=== PATIENT | female | born 1940 | race Caucasian/White ===

== ENCOUNTER 2019-05-07 16:13 | Inpatient (IN) | payer MEDICARE ==
[~2019-05-07] VITALS: Ht 167.6 cm; Wt 68.2 kg
--- NOTE | 2019-05-07 16:44 | NUR ---
BRAEDEN LADD AT APPROX 1600, PT STATES SHE GOT DIZZY AND FELL IN HER BATHROOM, PT HAS SWELLING TO R FOREHEAD AND LAC TO R ARM. PT PLACED ON MONITOR, STATES HE HAS A HX OF HTN, DEMENTIA AND HYPOTHYROID AFTER A THYROIDECTOMY. CALL LIGHT WITHIN REACH, PT STATES HER DAUGHTERS ARE AWARE AND COMING TO HOSPITAL.
[2019-05-07] MEDS ORDERED: LIDOCAINE-MPF 1%, 5ML ONE (17:06)
[2019-05-07] MEDS ORDERED: DIPH,PERTUSS(ACELL),TET VAC/PF 0.5 ML IM-VACC ONE ×2 (18:00→18:31)
--- NOTE | 2019-05-07 18:16 | NUR ---
AMBULATED TO RESTROOM WITH STEADY GAIT (NO DIZZINESS), NO INCREASE IN HR, DROP IN B/P
[2019-05-07] MEDS ORDERED: NEOSPORIN OINT. PKT 1 PACKET ONE (18:30)
[2019-05-07 18:56] LABS: MICROSCOPIC AUTO
[2019-05-07 18:57] LABS: CULTURE INDICATED? YES
--- NOTE | 2019-05-07 19:11 | NUR ---
Lab at Bedside at [address] scan at 1905 Reports to NATALIE Alonso
--- NOTE | 2019-05-07 19:16 | NUR ---
PT REPORT FROM NATALIE TRUONG. PT CARE TO BE ASSUMED.
[2019-05-07 19:20] LABS: BASOPHILS # (AUTO) 0.03 x10^3/uL (0-0.1); BASOPHILS % (AUTO) 0 % (0-1); EOSINOPHILS # (AUTO) 0.17 x10^3/uL (0-0.4); EOSINOPHILS % (AUTO) 2 % (1-7); LYMPHOCYTES # (AUTO) 1.34 x10^3/uL (1-3.4); LYMPHOCYTES % (AUTO) 16 % (22-44); MD NO; MEAN CORPUSCULAR HGB CONC 33.3 g/dL (32.4-35.8); MEAN CORPUSCULAR VOLUME 90.2 fL (80-100); MEAN PLATELET VOLUME 8.7 fL (7.4-10.4); MONOCYTES # (AUTO) 0.49 x10^3/uL (0.2-0.8); MONOCYTES % (AUTO) 6 % (2-9); NEUTROPHILS # (AUTO) 6.48 x10^3/uL (1.8-6.8); NEUTROPHILS % (AUTO) 76 % (42-75); PLATELET COUNT 205 x10^3/uL (130-400); RED BLOOD COUNT 4.32 x10^6/uL (3.82-5.3); RED CELL DISTRIBUTION WIDTH 13.7 % (9.6-15.2)
[2019-05-07 19:27] LABS: ALBUMIN 3.2 g/dL (3.4-5.0); ANION GAP 2 mmol/L (5-15); CALCIUM 8.5 mg/dL (8.5-10.1); CHLORIDE 110 mmol/L (98-107); CREATININE 1.11 mg/dL (0.55-1.02)
[2019-05-07 19:54] LABS: TROPONIN I 0.264 ng/mL (0.000-0.045)
[2019-05-07] MEDS ORDERED: ASPIRIN 81 MG TABLET CHEW PO ONE (20:30)
[2019-05-07] MEDS ORDERED: CEFTRIAXONE PMX 1GM/50ML 50 ML IVPB ONE (20:30)
[2019-05-07] MEDS ORDERED: SODIUM CHLORIDE FLUSH 10ML SYR IVF PRN (20:30)
[2019-05-07] MEDS ORDERED: ASPIRIN 81 MG TABLET CHEW ONE (20:37)
[2019-05-07] MEDS ORDERED: CEFTRIAXONE PMX 1GM/50ML 50 ML ONE (20:37)
--- NOTE | 2019-05-07 20:46 | NUR ---
PT REPORT TO NATALIE ROBERTSON FOR ROOM 526
[2019-05-07] MEDS ORDERED: RIVA6CAP3 PO (21:51)
[2019-05-07] MEDS ORDERED: TRAZ-175 PO (21:51)
[2019-05-07] MEDS ORDERED: LEVO125T PO (21:51)
[2019-05-07] MEDS ORDERED: LOSA25TA12 PO (21:51)
[2019-05-07] MEDS ORDERED: DONE10TA7 PO (21:51)
[2019-05-07] MEDS ORDERED: QUET100T PO (21:51)
--- NOTE | 2019-05-07 21:54 | NUR ---
PRIMOHIDeanne BUITRAGO; INFUSING AT 100ML/HR VIA PUMP. IV SITE PATENT.
[2019-05-07 22:25] VITALS: BP 152/88
[2019-05-08] MEDS ORDERED: CEFTRIAXONE PMX 1GM/50ML 50 ML IV SCH
[2019-05-08] MEDS ORDERED: ACETAMINOPHEN 325 MG TABLET PO PRN
[2019-05-08] MEDS ORDERED: PROMETHAZINE 25 MG/ML, 1ML IM PRN
[2019-05-08] MEDS ORDERED: ONDANSETRON 2MG/ML, 2ML IVPush PRN
[2019-05-08] MEDS ORDERED: POTASSIUM CHLORIDE 40 MEQ in SODIUM CHLORIDE 0.9% 500 ML IV ONE
[2019-05-08] MEDS ORDERED: LABETALOL 5MG/ML, 20ML IVPush PRN
[2019-05-08] MEDS ORDERED: ENALAPRILAT 1.25 MG/ML, 2ML IVPush PRN
[2019-05-08] MEDS ORDERED: TRAZODONE 100MG TABLET PO PRN
[2019-05-08] MEDS: ENOXAPARIN 40 MG/0.4 ML SQ SCH ×2 (00:29→23:53)
[2019-05-08 00:30] VITALS: BP_SYST 150; BP_SYST 166; BP_SYST 169; BP_DIAS 89; BP_DIAS 90; BP_DIAS 96
[2019-05-08 01:49] LABS: TROPONIN I 0.175 ng/mL (0.000-0.045)
[2019-05-08] MEDS: SODIUM CHLORIDE 0.9% 1,000 ML IV SCH ×2 (04:45→17:38)
[2019-05-08] MEDS: LEVOTHYROXINE 125 MCG TABLET PO SCH (06:16)
[2019-05-08] MEDS: ASPIRIN 325 MG TABLET EC PO SCH (06:16)
[2019-05-08 07:16] LABS: MEAN CORPUSCULAR HEMOGLOBIN 30.1 pg (27.0-34.8); MEAN CORPUSCULAR HGB CONC 33.1 g/dL (32.4-35.8); RED CELL DISTRIBUTION WIDTH 13.8 % (9.6-15.2)
[2019-05-08 07:23] LABS: ALBUMIN 3.1 g/dL (3.4-5.0); ANION GAP 4 mmol/L (5-15); CHLORIDE 112 mmol/L (98-107)
[2019-05-08 07:27] LABS: ALANINE AMINOTRANSFERASE 15 U/L (12-78); ALKALINE PHOSPHATASE 81 U/L (45-117); BILIRUBIN,TOTAL 0.6 mg/dL (0.2-1.0); CHOL/HDL RATIO 2.5; CHOLESTEROL, TOTAL 143 mg/dL (140-239); CREATININE 1.04 mg/dL (0.55-1.02); HDL CHOL % 41 % (28-40); HDL CHOLESTEROL (DIRECT) 58 mg/dL (40-60); LDL CHOLESTEROL,CALCULATED 69 mg/dL (54-169); LDL/HDL RATIO 1.2 (0.5-3.0); TOTAL PROTEIN 6.6 g/dL (6.4-8.2); TRIGLYCERIDES 78 mg/dL (50-200); TROPONIN I 0.087 ng/mL (0.000-0.045); VLDL CHOLESTEROL 16 mg/dL (0-25)
[2019-05-08 07:30] LABS: BASOPHILS # (AUTO) 0.03 x10^3/uL (0-0.1); BASOPHILS % (AUTO) 0 % (0-1); EOSINOPHILS % (AUTO) 3 % (1-7); LYMPHOCYTES # (AUTO) 1.44 x10^3/uL (1-3.4); LYMPHOCYTES % (AUTO) 21 % (22-44); MD SCAN; MEAN PLATELET VOLUME 9.1 fL (7.4-10.4); MONOCYTES # (AUTO) 0.28 x10^3/uL (0.2-0.8); MONOCYTES % (AUTO) 4 % (2-9); NEUTROPHILS # (AUTO) 5.03 x10^3/uL (1.8-6.8); NEUTROPHILS % (AUTO) 72 % (42-75); PLATELET COUNT 141 x10^3/uL (130-400)
[2019-05-08 07:43] VITALS: BP 160/103
[2019-05-08] MEDS: DONEPEZIL 10 MG TABLET PO SCH (09:08)
[2019-05-08] MEDS: RIVASTIGMINE 1.5 MG CAPSULE PO SCH ×2 (09:08→20:30)
[2019-05-08] MEDS: QUETIAPINE 100MG TABLET PO SCH (09:08)
[2019-05-08] MEDS: LOSARTAN 25MG TABLET PO SCH (09:08)
[2019-05-08 12:23] VITALS: BP 169/78
[2019-05-08 16:11] LABS: CLOSTRIDIUM DIFFICILE ANTIGEN NEGATIVE; CLOSTRIDIUM DIFFICILE TOXIN NEGATIVE (Negative)
[2019-05-08 18:36] VITALS: BP 169/81
[2019-05-08 18:40] VITALS: BP 155/80
[2019-05-08 18:42] VITALS: BP 133/71
[2019-05-08] MEDS: AMLODIPINE 5 MG TABLET PO SCH (20:30)
[2019-05-09 00:28] VITALS: BP 167/101
[2019-05-09] MEDS: ASPIRIN 325 MG TABLET EC PO SCH (05:54)
[2019-05-09] MEDS: LEVOTHYROXINE 125 MCG TABLET PO SCH (05:54)
[2019-05-09 06:07] LABS: ALANINE AMINOTRANSFERASE 35 U/L (12-78); ALBUMIN 3.7 g/dL (3.4-5.0); ANION GAP 9 mmol/L (5-15); CALCIUM 8.7 mg/dL (8.5-10.1); CHLORIDE 108 mmol/L (98-107); CREATININE 1.01 mg/dL (0.55-1.02)
[2019-05-09 06:09] LABS: ALKALINE PHOSPHATASE 109 U/L (45-117); BILIRUBIN,TOTAL 0.8 mg/dL (0.2-1.0); TOTAL PROTEIN 8.4 g/dL (6.4-8.2)
[2019-05-09 06:18] LABS: BASOPHILS # (AUTO) 0.03 x10^3/uL (0-0.1); BASOPHILS % (AUTO) 0 % (0-1); EOSINOPHILS # (AUTO) 0.24 x10^3/uL (0-0.4); EOSINOPHILS % (AUTO) 2 % (1-7); LYMPHOCYTES # (AUTO) 1.68 x10^3/uL (1-3.4); LYMPHOCYTES % (AUTO) 16 % (22-44); MD NO; MEAN CORPUSCULAR HEMOGLOBIN 30.1 pg (27.0-34.8); MEAN CORPUSCULAR HGB CONC 33.4 g/dL (32.4-35.8); MEAN CORPUSCULAR VOLUME 90.2 fL (80-100); MEAN PLATELET VOLUME 10.2 fL (7.4-10.4); MONOCYTES # (AUTO) 0.53 x10^3/uL (0.2-0.8); MONOCYTES % (AUTO) 5 % (2-9); NEUTROPHILS # (AUTO) 8.32 x10^3/uL (1.8-6.8); NEUTROPHILS % (AUTO) 77 % (42-75); PLATELET COUNT 163 x10^3/uL (130-400); RED BLOOD COUNT 5.25 x10^6/uL (3.82-5.3); RED CELL DISTRIBUTION WIDTH 13.7 % (9.6-15.2)
[2019-05-09] MEDS: SODIUM CHLORIDE 0.9% 1,000 ML IV SCH (06:23)
[2019-05-09 06:50] VITALS: BP_SYST 156; BP_SYST 169; BP_SYST 178; BP_DIAS 104; BP_DIAS 106; BP_DIAS 111
[2019-05-09] MEDS: LOSARTAN 25MG TABLET PO SCH (07:55)
[2019-05-09] MEDS: RIVASTIGMINE 1.5 MG CAPSULE PO SCH ×2 (07:55→17:03)
[2019-05-09] MEDS: AMLODIPINE 5 MG TABLET PO SCH ×2 (07:56→20:40)
[2019-05-09] MEDS: DONEPEZIL 10 MG TABLET PO SCH ×2 (07:56→17:02)
[2019-05-09] MEDS: QUETIAPINE 100MG TABLET PO SCH ×2 (07:56→17:03)
[2019-05-09] MEDS ORDERED: METOPROLOL TARTRATE 50 MG TAB ONE (09:06)
[2019-05-09] MEDS: METOPROLOL TARTRATE 50 MG TAB PO SCH ×2 (09:08→17:03)
[2019-05-09 13:48] VITALS: BP_SYST 135; BP_SYST 140; BP_SYST 146; BP_DIAS 73; BP_DIAS 81; BP_DIAS 85
--- NOTE | 2019-05-09 13:59 | NUR ---
SNF rehab at 5x/week Addendum: 05/09/19 at 1359 by Karlo Blair PT Amended: Links added.
[2019-05-09 20:31] VITALS: BP 144/86
[2019-05-09] MEDS: SULFAMETH./TRIMETHOPRIM DS 800MG/160MG TABLET PO SCH (20:40)
[2019-05-10 00:48] VITALS: BP 156/91
[2019-05-10] MEDS: ENOXAPARIN 40 MG/0.4 ML SQ SCH (00:54)
[2019-05-10 05:49] VITALS: BP 152/78
[2019-05-10] MEDS: ASPIRIN 325 MG TABLET EC PO SCH (05:50)
[2019-05-10] MEDS: METOPROLOL TARTRATE 50 MG TAB PO SCH (05:50)
[2019-05-10] MEDS: LEVOTHYROXINE 125 MCG TABLET PO SCH (05:50)
[2019-05-10 06:01] LABS: ALBUMIN 3.2 g/dL (3.4-5.0); ANION GAP 9 mmol/L (5-15); CALCIUM 8.5 mg/dL (8.5-10.1); CHLORIDE 108 mmol/L (98-107)
[2019-05-10 06:04] LABS: ALANINE AMINOTRANSFERASE 23 U/L (12-78); ALKALINE PHOSPHATASE 85 U/L (45-117); BILIRUBIN,TOTAL 0.7 mg/dL (0.2-1.0); CREATININE 0.88 mg/dL (0.55-1.02)
[2019-05-10 06:06] LABS: BASOPHILS # (AUTO) 0.02 x10^3/uL (0-0.1); BASOPHILS % (AUTO) 0 % (0-1); EOSINOPHILS # (AUTO) 0.33 x10^3/uL (0-0.4); EOSINOPHILS % (AUTO) 4 % (1-7); LYMPHOCYTES # (AUTO) 1.62 x10^3/uL (1-3.4); LYMPHOCYTES % (AUTO) 21 % (22-44); MD NO; MEAN CORPUSCULAR HEMOGLOBIN 30.4 pg (27.0-34.8); MEAN CORPUSCULAR HGB CONC 33.6 g/dL (32.4-35.8); MEAN CORPUSCULAR VOLUME 90.4 fL (80-100); MEAN PLATELET VOLUME 9.1 fL (7.4-10.4); MONOCYTES # (AUTO) 0.45 x10^3/uL (0.2-0.8); MONOCYTES % (AUTO) 6 % (2-9); NEUTROPHILS # (AUTO) 5.34 x10^3/uL (1.8-6.8); NEUTROPHILS % (AUTO) 69 % (42-75); PLATELET COUNT 207 x10^3/uL (130-400); RED BLOOD COUNT 4.36 x10^6/uL (3.82-5.3); RED CELL DISTRIBUTION WIDTH 13.7 % (9.6-15.2)
[2019-05-10] MEDS ORDERED: POTASSIUM CHLORIDE 20 MEQ TAB.ER.PRT ONE (08:09)
[2019-05-10] MEDS: SULFAMETH./TRIMETHOPRIM DS 800MG/160MG TABLET PO SCH ×2 (08:16→20:27)
[2019-05-10] MEDS: AMLODIPINE 5 MG TABLET PO SCH ×2 (08:16→20:27)
[2019-05-10] MEDS: POTASSIUM CHLORIDE 20 MEQ TAB.ER.PRT PO SCH ×2 (08:16→17:14)
[2019-05-10] MEDS: LOSARTAN 25MG TABLET PO SCH (08:17)
[2019-05-10] MEDS ORDERED: REGADENOSON 0.4 MG/5 ML SYRINGE ONE (08:24)
[2019-05-10 08:55] VITALS: BP_SYST 124; BP_SYST 137; BP_SYST 141; BP_DIAS 78; BP_DIAS 84; BP_DIAS 85
[2019-05-10 12:49] VITALS: BP_SYST 137; BP_SYST 153; BP_SYST 154; BP_DIAS 87; BP_DIAS 93
[2019-05-10] MEDS ORDERED: METOPROLOL TARTRATE 50 MG TAB PO ONE (13:30)
[2019-05-10] MEDS: METOPROLOL TARTRATE 100 MG TAB PO SCH (17:13)
[2019-05-10] MEDS: RIVASTIGMINE 1.5 MG CAPSULE PO SCH (17:14)
[2019-05-10] MEDS ORDERED: QUETIAPINE 100MG TABLET PO SCH (18:00)
[2019-05-10] MEDS ORDERED: DONEPEZIL 10 MG TABLET PO SCH (18:00)
[2019-05-10 20:04] VITALS: BP 94/63
[2019-05-11] MEDS: ENOXAPARIN 40 MG/0.4 ML SQ SCH (00:21)
[2019-05-11 01:35] VITALS: BP 126/90
[2019-05-11] MEDS: METOPROLOL TARTRATE 100 MG TAB PO SCH (06:08)
[2019-05-11] MEDS: LEVOTHYROXINE 125 MCG TABLET PO SCH (06:08)
[2019-05-11] MEDS: ASPIRIN 325 MG TABLET EC PO SCH (06:08)
[2019-05-11 06:10] LABS: ALBUMIN 3.3 g/dL (3.4-5.0); ANION GAP 6 mmol/L (5-15); CHLORIDE 110 mmol/L (98-107)
[2019-05-11 06:12] LABS: ALANINE AMINOTRANSFERASE 22 U/L (12-78); ALKALINE PHOSPHATASE 80 U/L (45-117); BILIRUBIN,TOTAL 0.6 mg/dL (0.2-1.0); CREATININE 1.27 mg/dL (0.55-1.02); TOTAL PROTEIN 6.8 g/dL (6.4-8.2)
[2019-05-11 08:10] VITALS: BP 116/66
[2019-05-11] MEDS ORDERED: HEPARIN 5,000 UNITS/ML, 1ML SQ SCH (08:30)
[2019-05-11] MEDS: AMLODIPINE 5 MG TABLET PO SCH (08:52)
[2019-05-11] MEDS: RIVASTIGMINE 1.5 MG CAPSULE PO SCH (08:52)
[2019-05-11] MEDS ORDERED: CIPROFLOXACIN 500 MG TABLET PO SCH (09:00)
[2019-05-11] MEDS ORDERED: NITROFURANTOIN 50 MG CAPSULE PO SCH (11:00)
[2019-05-11] MEDS ORDERED: ASPI-650 PO (12:30)
[2019-05-11] MEDS ORDERED: ACET325T26 PO (12:30)
[2019-05-11] MEDS ORDERED: CIPR500T87 PO ×2 (12:30)
[2019-05-11] MEDS ORDERED: METO-93 PO (12:30)
[2019-05-11 14:09] VITALS: BP 135/87
[2019-05-11] MEDS ORDERED: CEFD300C37 PO (15:40)
[2019-05-11] MEDS ORDERED: METOPROLOL TARTRATE 25 MG TAB PO SCH (18:00)
[2019-05-11] MEDS ORDERED: METOPROLOL TARTRATE 50 MG TAB PO SCH (18:00)
[2019-05-12] MEDS ORDERED: METOPROLOL SUCCINATE 50 MG TAB.ER.24H PO SCH (06:00)
[2019-05-12] MEDS ORDERED: LOSARTAN 25MG TABLET PO SCH (09:00)
== END 2019-05-11 16:15 | disposition home health service (06) | DRG 73 ==
LOC: ED 20:07 → EDIP 20:16 → 5SO 22:12 → DCLOUNGE 05-11 15:56
PROVIDERS: ADMIT Internal Medicine; ATTEND Internal Medicine
PROC: 0HQDXZZ Repair Right Lower Arm Skin, External Approach (ICD-10-PCS; principal; 2019-05-07)
DX: G90.8 Other disorders of autonomic nervous system (principal); N17.0 Acute kidney failure with tubular necrosis; D68.69 Other thrombophilia; I50.42 Chronic combined systolic (congestive) and diastolic (congestive) heart failure; I42.0 Dilated cardiomyopathy; N30.01 Acute cystitis with hematuria; I24.8 Other forms of acute ischemic heart disease; R55 Syncope and collapse; B96.20 Unspecified Escherichia coli [E. coli] as the cause of diseases classified elsewhere; E87.6 Hypokalemia; F17.210 Nicotine dependence, cigarettes, uncomplicated; G20 Parkinson's disease; F02.80 Dementia in other diseases classified elsewhere, unspecified severity, without behavioral disturbance, psychotic disturbance, mood disturbance, and anxiety; Z66 Do not resuscitate; E03.9 Hypothyroidism, unspecified; E88.09 Other disorders of plasma-protein metabolism, not elsewhere classified; R63.4 Abnormal weight loss; I08.0 Rheumatic disorders of both mitral and aortic valves; I11.0 Hypertensive heart disease with heart failure; I48.0 Paroxysmal atrial fibrillation; S51.811A Laceration without foreign body of right forearm, initial encounter; W18.09XA Striking against other object with subsequent fall, initial encounter; Y93.89 Activity, other specified; Y92.091 Bathroom in other non-institutional residence as the place of occurrence of the external cause; Y99.8 Other external cause status; Z85.828 Personal history of other malignant neoplasm of skin; Z68.24 Body mass index [BMI] 24.0-24.9, adult; Z88.0 Allergy status to penicillin
CPT/HCPCS: 12034; 36415; 70450; 71045; 78452; 80048; 80053; 80061; 81001; 82040; 83735; 84443; 84484; 85025; 87077; 87086; 87186; 87324; 90471; 90715; 93005; 93017; 93306; 93880; G0378; J0696; J1644; J1650; J2785; J3480; A9502; C9898; J7030; J7040